=== PATIENT | female | born 1970 | race Caucasian/White ===

== ENCOUNTER 2017-01-14 16:18 | Emergency (ER) | payer SELFPAY ==
[2017-01-14] MEDS ORDERED: NS 0.9% 1000 ML* 1,000 ML IV ONE (16:44)
[2017-01-14] MEDS ORDERED: Ondansetron INJ* 2 MG/ML VIAL IV ONE (16:44)
[2017-01-14 17:16] VITALS: BP 118/65
[2017-01-14 17:31] LABS: Hematocrit 46 % (35-47); Hemoglobin 15.8 g/dl (12.0-16.0); Mean Corpuscular HGB Conc 34 g/dl (31-36); Mean Corpuscular Hemoglobin 29 pg (27-31); Mean Corpuscular Volume 86 fL (80-97); Mean Platelet Volume 9 um3 (7.4-10.4); Red Blood Count 5.38 10^6/ul (4.0-5.4); Red Cell Distribution Width 13 % (10.5-15); White Blood Count 9.3 10^3/ul (3.5-10.8)
[2017-01-14 17:34] LABS: Urine Bilirubin Negative (Negative); Urine Glucose Negative (Negative); Urine Nitrite Negative (Negative)
[2017-01-14 17:48] LABS: Albumin 4.6 g/dL (3.2-5.2); C Reactive Protein 1.75 mg/L (< 5.00); Calcium 9.6 mg/dL (8.6-10.3); EGFR African American 110.4 (>60); EGFR Non-African American 85.8 (>60); Globulin 2.9 g/dL (2-4); Magnesium 1.9 mg/dL (1.9-2.7); Total Bilirubin 0.3 mg/dL (0.2-1.0); Total Protein 7.5 g/dL (6.4-8.9)
[2017-01-14] MEDS ORDERED: Iohexol 300* (CONTRAST) 10 ML SDV IV ONE (18:59)
--- NOTE | 2017-01-14 19:37 | RAD ---
INDICATION: Abdominal pain COMPARISON: None TECHNIQUE: Axial source images were obtained from the hemidiaphragms to the symphysis pubis following administration of oral and intravenous contrast. 97 mL Omnipaque 300 was utilized. Coronal and sagittal reconstructed images were acquired. Lung bases: The lung bases are clear. Liver: The liver is normal in size. There are no masses. There is no ductal dilatation. Gallbladder: There are no calcified gallstones. There is no evidence of wall thickening or pericholecystic fluid. Spleen: The spleen is normal in size. There are no masses. Pancreas: There is no focal pancreatic mass or ductal dilatation. Adrenal glands: There is no evidence of adrenal mass. Kidneys: The kidneys are normal in size and position. There are prompt nephrograms and there is prompt excretion bilaterally. There are no renal parenchymal masses. There is no evidence of nephrolithiasis. Adenopathy: There is no evidence of adenopathy by size criteria. Fluid collections: There are no free or localized fluid collections. Vessels:There are no significant atherosclerotic changes involving the aorta. There is no focal aneurysm. The iliac vessels are normal in caliber. The IVC appears normal. GI tract: There are no acute CT bowel findings. There is no obstruction. The stomach and small bowel appear normal. The lower GI tract is normal. The cecum, ileocecal valve, and terminal ileum appear normal. The appendix is visualized and appear normal. Pelvic organs: The uterus and adnexa appear normal Bladder: There are no bladder masses. Abdominal and pelvic soft tissues: The extraperitoneal abdominal and pelvic soft tissues appear normal.. Osseous structures: There are no acute osseous findings. Other: None IMPRESSION: NO ACUTE CT FINDINGS. NO MASS OR INFLAMMATORY CHANGES.
--- NOTE | 2017-01-14 21:10 | ED ---
George Peterson Rebecca, scribed for Edmund Garcia MD on 01/14/17 at 2036 . Progress - Progress Note Progress Note: Pt was signed out by Dr. Bower, pending disposition, awaiting CT Abd/Pel. pt ct ab pel negative, pt feels better, instructed to fu with PMD .agrees to and understands dc instructions . - Results/Orders Results/Orders: CT Abd/Pel, as read by radiologist reveals: NO ACUTE CT FINDINGS. NO MASS OR INFLAMMATORY CHANGES. ED physician reviewed radiology report and agrees. Re-Evaluation - Re-Evaluation First Eval Re-Evaluation Time: 20:36 Change: Improved Comment: Discussed CT results with the pt who is very pleasant and expresses that she would like to go home. Course/Dx - Diagnoses Provider Diagnoses: Abdominal pain, Rectal bleeding, secondary to external hemorrhoids The documentation as recorded by the George gonzales Rebecca accurately reflects the service I personally performed and the decisions made by me, Edmund Garcia MD.
--- NOTE | 2017-01-15 18:37 | ED ---
Farzad Peterson Angela, scribed for Woody Bower MD on 01/14/17 at 1646 . GI/ HPI - HPI Summary HPI Summary: This pt is a 46 y/o female BIBA presenting to [facility] c/o bright red blood with diarrhea today. Pt reports she was feeling "funny" yesterday with decreased PO intake and "didn't feel like doing anything." Pt states that today she had 2 episodes of diarrhea with bright red blood. She notes that every time she wiped , she states "it was like I was on my period." Pt has a history of external hemorrhoids and reports she has been straining more with bowel movements. Pt additionally c/o upset abd with decreased appetite, cold feet, SOB, and palpitations. She describes her palpitations as fast. She denies cough, fever, nausea, vomiting. Pt had a bowl of oatmeal today. She is not on any anticoagulants. - History of Current Complaint Chief Complaint: [facility] Time Seen by Provider: 01/14/17 16:36 Stated Complaint: GENERAL ILLNESS Hx Obtained From: Patient Onset/Duration: Started Hours Ago Timing: Lasting Hours Vaginal Bleeding Description: Bright Red Pain Intensity: 0 Location of Pain: Diffuse Pain Characteristics: Unable to describe - abd upset Associated Signs and Symptoms: Positive: External Hemorrhoids, Other: - SOB, palpitations, decreased appetite. Negative: Nausea, Vomiting, Fever, Cough Aggravating Factor(s): Straining Alleviating Factor(s): Nothing - Allergy/Home Medications Allergies/Adverse Reactions: Allergies Allergy/AdvReac Type Severity Reaction Status Date / Time pill after to help Allergy Anxiety Uncoded 04/12/14 10:49 contract u Home Medications: Home Medications NK [No Home Medications Reported] 01/14/17 [History Confirmed 01/14/17] PMH/Surg Hx/FS Hx/Imm Hx Endocrine/Hematology History: Denies: Hx Diabetes, Hx Thyroid Disease Cardiovascular History: Denies: Hx Hypertension Respiratory History: Denies: Hx Asthma, Hx Chronic Obstructive Pulmonary Disease (COPD) GI History: Denies: Hx Ulcer History: Reports: Hx Kidney Infection - 1992 Psychiatric History: Denies: Hx Eating Disorder, Hx of Violent Episodes Against Others - Surgical History Surgery Procedure, Year, and Place: wrist fx repair. 1997 & 1999 Infectious Disease History: No Infectious Disease History: Reports: History Other Infectious Disease - scabies 04/2014 Denies: Hx Clostridium Difficile, Hx Hepatitis, Hx Human Immunodeficiency Virus (HIV), Hx of Known/Suspected MRSA, Hx Shingles, Hx Tuberculosis, Hx Known/ Suspected VRE, Traveled Outside the [place] in Last 30 Days - Family History Known Family History: Positive: Cardiac Disease - Father of [place] - Social History Alcohol Use: None Substance Use Type: Reports: Marijuana Smoking Status (MU): Heavy Every Day Tobacco Smoker Type: Cigarettes Amount Used/How Often: 1/2 plus Review of Systems Positive: Other - decreased appetite, cold feet. Negative: Fever, Chills Positive: Palpitations Positive: Shortness Of Breath. Negative: Cough Positive: Diarrhea - with red bright blood. Negative: Vomiting, Nausea Negative: Headache, Weakness, Numbness All Other Systems Reviewed And Are Negative: Yes Physical Exam - Summary Physical Exam Summary: VITAL SIGNS: Reviewed. GENERAL: Patient is a well-developed and nourished female who is lying comfortable in the stretcher. Patient is not in any acute respiratory distress. HEAD AND FACE: No signs of trauma. No ecchymosis, hematomas or skull depressions. No sinus tenderness. EYES: PERRLA, EOMI x 2, No injected conjunctiva, no nystagmus. EARS: Hearing grossly intact. Ear canals and tympanic membranes are within normal limits. MOUTH: Oropharynx within normal limits. NECK: Supple, trachea is midline, no adenopathy, no JVD, no carotid bruit, no c- spine tenderness, neck with full ROM. CHEST: Symmetric, no tenderness at palpation LUNGS: Clear to auscultation bilaterally. No wheezing or crackles. CVS: Pt sounds tachycardic. S1 and S2 present, no murmurs or gallops appreciated. ABDOMEN: Soft, non-tender. No signs of distention. No rebound no guarding, and no masses palpated. There are hyperactive bowel sounds. Rectal exam: female driver engineer present. There are external hemorrhoids and it seems like they are bleeding. EXTREMITIES: FROM in all major joints, no edema, no cyanosis or clubbing. NEURO: Alert and oriented x 3. No acute neurological deficits. Speech is normal and follows commands. SKIN: Dry and warm Triage Information Reviewed: Yes Vital Signs On Initial Exam: Initial Vitals Temp Pulse Resp BP Pulse Ox 99.1 F 96 16 135/90 99 01/14/17 16:27 01/14/17 16:27 01/14/17 16:27 01/14/17 16:27 01/14/17 16:27 Vital Signs Reviewed: Yes Diagnostics - Vital Signs Vital Signs Temp Pulse Resp BP Pulse Ox 01/14/17 16:27 99.1 F 96 16 135/90 99 - Laboratory Lab Results: Lab Results 01/14/17 01/14/17 01/14/17 Range/Units 17:20 17:20 17:20 WBC 9.3 (3.5-10.8) 10^3/ul RBC 5.38 (4.0-5.4) 10^6/ul Hgb 15.8 (12.0-16.0) g/dl Hct 46 (35-47) % MCV 86 (80-97) fL MCH 29 (27-31) pg MCHC 34 (31-36) g/dl RDW 13 (10.5-15) % Plt Count 192 (150-450) 10^3/ul MPV 9 (7.4-10.4) um3 Neut % (Auto) 72.6 (38-83) % Lymph % (Auto) 21.4 L (25-47) % Kerr % (Auto) 4.7 (1-9) % Eos % (Auto) 0.5 (0-6) % Baso % (Auto) 0.8 (0-2) % Absolute Neuts (auto) 6.7 (1.5-7.7) 10^3/ul Absolute Lymphs (auto) 2.0 (1.0-4.8) 10^3/ul Absolute Monos (auto) 0.4 (0-0.8) 10^3/ul Absolute Eos (auto) 0 (0-0.6) 10^3/ul Absolute Basos (auto) 0.1 (0-0.2) 10^3/ul Absolute Nucleated RBC 0 10^3/ul Nucleated RBC % 0 Sodium 136 (133-145) mmol/L Potassium 4.0 (3.5-5.0) mmol/L Chloride 105 (101-111) mmol/L Carbon Dioxide 26 (22-32) mmol/L Anion Gap 5 (2-11) mmol/L BUN 8 (6-24) mg/dL Creatinine 0.73 (0.51-0.95) mg/dL Est GFR ( Amer) 110.4 (>60) Est GFR (Non-Af Amer) 85.8 (>60) BUN/Creatinine Ratio 11.0 (8-20) Glucose 101 H (70-100) mg/dL Calcium 9.6 (8.6-10.3) mg/dL Magnesium 1.9 (1.9-2.7) mg/dL Total Bilirubin 0.30 (0.2-1.0) mg/dL AST 18 (13-39) U/L ALT 13 (7-52) U/L Alkaline Phosphatase 73 (34-104) U/L C-Reactive Protein 1.75 (< 5.00) mg/L Total Protein 7.5 (6.4-8.9) g/dL Albumin 4.6 (3.2-5.2) g/dL Globulin 2.9 (2-4) g/dL Albumin/Globulin Ratio 1.6 (1-3) Amylase 38 (29-103) U/L Lipase 24 (11.0-82.0) U/L Urine Color Straw Urine Appearance Clear Urine pH 6.0 (5-9) Ur Specific Sherrill 1.003 L (1.010-1.030) Urine Protein Negative (Negative) Urine Ketones Negative (Negative) Urine Blood Negative (Negative) Urine Nitrate Negative (Negative) Urine Bilirubin Negative (Negative) Urine Urobilinogen Negative (Negative) Ur Leukocyte Esterase Negative (Negative) Urine Glucose Negative (Negative) Blood Type Antibody Screen 01/14/17 Range/Units 17:20 WBC (3.5-10.8) 10^3/ul RBC (4.0-5.4) 10^6/ul Hgb (12.0-16.0) g/dl Hct (35-47) % MCV (80-97) fL MCH (27-31) pg MCHC (31-36) g/dl RDW (10.5-15) % Plt Count (150-450) 10^3/ul MPV (7.4-10.4) um3 Neut % (Auto) (38-83) % Lymph % (Auto) (25-47) % Kerr % (Auto) (1-9) % Eos % (Auto) (0-6) % Baso % (Auto) (0-2) % Absolute Neuts (auto) (1.5-7.7) 10^3/ul Absolute Lymphs (auto) (1.0-4.8) 10^3/ul Absolute Monos (auto) (0-0.8) 10^3/ul Absolute Eos (auto) (0-0.6) 10^3/ul Absolute Basos (auto) (0-0.2) 10^3/ul Absolute Nucleated RBC 10^3/ul Nucleated RBC % Sodium (133-145) mmol/L Potassium (3.5-5.0) mmol/L Chloride (101-111) mmol/L Carbon Dioxide (22-32) mmol/L Anion Gap (2-11) mmol/L BUN (6-24) mg/dL Creatinine (0.51-0.95) mg/dL Est GFR ( Amer) (>60) Est GFR (Non-Af Amer) (>60) BUN/Creatinine Ratio (8-20) Glucose (70-100) mg/dL Calcium (8.6-10.3) mg/dL Magnesium (1.9-2.7) mg/dL Total Bilirubin (0.2-1.0) mg/dL AST (13-39) U/L ALT (7-52) U/L Alkaline Phosphatase (34-104) U/L C-Reactive Protein (< 5.00) mg/L Total Protein (6.4-8.9) g/dL Albumin (3.2-5.2) g/dL Globulin (2-4) g/dL Albumin/Globulin Ratio (1-3) Amylase (29-103) U/L Lipase (11.0-82.0) U/L Urine Color Urine Appearance Urine pH (5-9) Ur Specific Sherrill (1.010-1.030) Urine Protein (Negative) Urine Ketones (Negative) Urine Blood (Negative) Urine Nitrate (Negative) Urine Bilirubin (Negative) Urine Urobilinogen (Negative) Ur Leukocyte Esterase (Negative) Urine Glucose (Negative) Blood Type A Positive Antibody Screen Negative Result Diagrams: 01/14/17 17:20 01/14/17 17:20 Lab Statement: Any lab studies that have been ordered have been reviewed, and results considered in the medical decision making process. - EKG 1723 Cardiac Rate: NL - 84 bpm EKG Rhythm: Sinus Rhythm EKG Interpretation: No ST elevation GIGU Course/Dx - Course Assessment/Plan: This pt is a 46 y/o female BIBA presenting to [facility] c/o bright red blood with diarrhea today. Pt reports she was feeling "funny" yesterday with decreased PO intake and "didn't feel like doing anything." Pt states that today she had 2 episodes of diarrhea with bright red blood. She notes that every time she wiped, she states "it was like I was on my period." Pt has a history of external hemorrhoids and reports she has been straining more with bowel movements. Pt additionally c/o upset abd with decreased appetite, cold feet, SOB, and palpitations. She describes her palpitations as fast. She denies cough, fever, nausea, vomiting. Pt had a bowl of oatmeal today. She is not on any anticoagulants. Test results without any significant abnormalities, h and h is normal. Stool occult is positive for blood. The pt is hemodynamically stable, not actively bleeding. I believe the rectal bleeding is secondary to hemorrhoids. She reports slight RLQ pain therefore I decided to do a CT. Pt is drinking contrast and is waiting for the test. The pt will be signed out to Dr. Garcia to follow up on imaging. If negative the pt can be discharged home with follow up from his PCP. - Diagnoses Provider Diagnoses: Abdominal pain, Rectal bleeding, secondary to external hemorrhoids Discharge - Discharge Plan Condition: Stable Disposition: OTHER Discharge Disposition Comment: signed out to Dr. Garcia, pending dispo, awaiting CT abd/pel Patient Education Materials: Rectal Bleeding (ED) Referrals: Galo Snow MD [Primary Care Provider] - Additional Instructions: PLEASE MAKE AN APPOINTMENT FIRST THING IN THE MORNING TO BE SEEN BY YOUR PRIMARY CARE PHYSICIAN WITHIN 1 WEEK PLEASE RETURN TO THE EMERGENCY ROOM IF YOU HAVE ANY WORSENING OR CONCERNING SYMPTOMS The documentation as recorded by the Farzad gonzales Angela accurately reflects the service I personally performed and the decisions made by me, Woody Bower MD.
== END 2017-01-14 21:45 ==
LOC: ED 16:18
DX: R10.84 Generalized abdominal pain (principal); K62.5 Hemorrhage of anus and rectum; K64.4 Residual hemorrhoidal skin tags
CPT/HCPCS: 36415; 74177; 80053; 81003; 82150; 82272; 83690; 83735; 85025; 86140; 86850; 86900; 86901; 93005; 96361; 96374; 99283; J2405; Q9967

== ENCOUNTER 2018-10-25 12:53 | Emergency (ER) | payer SELFPAY ==
--- NOTE | 2018-10-25 13:16 | ED ---
Complex/Multi-Sys Presentation - HPI Summary HPI Summary: The patient is a 48 y/o F arriving by ambulance to [facility] accompanied by friend with a chief complaint of sudden onset fatigue and body tremors this afternoon. She reports that she had taken her friends Keflex for a tooth infection that started 4-5 days ago. The pain went from the tooth and into the jaw. She has taken three doses of Keflex, and she states she has taken it before. Then today she took 800mg Ibuprofen after a dose of the abx, and an hour later she started feeling dizzy, weak, and fatigued with elevated HR, and she states she is cold with body tremors but denies fever or chills. EMS also reports hyperventilation and elevated HR. She denies any erythema of eyes, sore throat, CP, SOB, cough, abdominal pain, N/V, dysuria, hematuria, myalgia, edema, or rash. PMHx: kidney infection. FHx: cardiac disease. Heavy every day cigarette smoker, no EtOH, marijuana use. - History Of Current Complaint Chief Complaint: EDGeneral Time Seen by Provider: 10/25/18 12:55 Hx Obtained From: Patient, EMS Onset/Duration: Sudden Onset, Lasting Hours, Still Present Timing: Constant Severity Currently: Moderate Severity Initially: Moderate Aggravating Factor(s): taking Ibuprofen Alleviating Factor(s): nothing Associated Signs And Symptoms: Positive: Dizziness, Weakness, Other - POSITIVE: left-sided dental pain, fatigue, elevated HR, body tremors, hyperventilation; NEGATIVE: chills, erythema of eyes, sore throat, hematuria, myalgia, edema, rash. Negative: SOB, Cough, Chest Pain, Edema, Nausea, Vomiting, Abdominal Pain , Dysuria, Fever - Allergies/Home Medications Allergies/Adverse Reactions: Allergies Allergy/AdvReac Type Severity Reaction Status Date / Time No Known Allergies Allergy Verified 10/25/18 13:07 PMH/Surg Hx/FS Hx/Imm Hx Endocrine/Hematology History: Denies: Hx Diabetes, Hx Thyroid Disease Cardiovascular History: Denies: Hx Hypertension Respiratory History: Denies: Hx Asthma, Hx Chronic Obstructive Pulmonary Disease (COPD) GI History: Denies: Hx Ulcer History: Reports: Hx Kidney Infection - 1992 Denies: Hx Renal Disease Psychiatric History: Denies: Hx Eating Disorder, Hx of Violent Episodes Against Others - Surgical History Surgical History: Yes Surgery Procedure, Year, and Place: wrist fx repair. 1997 & 1999 Infectious Disease History: No Infectious Disease History: Reports: History Other Infectious Disease - scabies 04/2014 Denies: Hx Clostridium Difficile, Hx Hepatitis, Hx Human Immunodeficiency Virus (HIV), Hx of Known/Suspected MRSA, Hx Shingles, Hx Tuberculosis, Hx Known/ Suspected VRE, Traveled Outside the [place] in Last 30 Days - Family History Known Family History: Positive: Cardiac Disease - Father of [place] - Social History Alcohol Use: None Substance Use Type: Reports: Marijuana Hx Tobacco Use: Yes Smoking Status (MU): Heavy Every Day Tobacco Smoker Type: Cigarettes Amount Used/How Often: 1/2 plus Review of Systems Positive: Fatigue, Other - body tremors. Negative: Fever, Chills Negative: Erythema Positive: Dental Pain - left side of mouth. Negative: Sore Throat Positive: Other - rapid HR. Negative: Chest Pain Positive: Other - hyperventilation. Negative: Shortness Of Breath, Cough Negative: Abdominal Pain, Vomiting, Nausea Negative: dysuria, hematuria Negative: Myalgia, Edema Negative: Rash Neurological: Other - dizziness Positive: Weakness All Other Systems Reviewed And Are Negative: Yes Physical Exam - Summary Physical Exam Summary: Constitutional: Well-developed, Well-nourished, Alert. (-) Distressed Skin: Warm, Dry HENT: No trismus, No sublingual erythema, Numerous teeth decayed down to gum line, No drainable dental abscess. Normocephalic; Atraumatic Eyes: Conjunctiva normal Neck: Musculoskeletal ROM normal neck. (-) JVD, (-) Stridor, (-) Tracheal deviation Cardio: Rhythm regular, rate normal, Heart sounds normal; Intact distal pulses; The pedal pulses are 2+ and symmetric. Radial pulses are 2+ and symmetric. (-) Murmur Pulmonary/Chest wall: Effort normal. (-) Respiratory distress, (-) Wheezes, (-) Rales Abd: Soft, (-) tenderness, (-) Distension, (-) Guarding, (-) Rebound Musculoskeletal: (-) Edema Lymph: (-) Cervical adenopathy Neuro: Alert, Oriented x3 Psych: Mood and affect Normal Triage Information Reviewed: Yes Vital Signs On Initial Exam: Initial Vitals Temp Pulse Resp BP Pulse Ox 98.1 F 98 16 148/81 99 10/25/18 13:01 10/25/18 13:01 10/25/18 13:01 10/25/18 13:01 10/25/18 13:01 Vital Signs Reviewed: Yes Diagnostics - Vital Signs Vital Signs Temp Pulse Resp BP Pulse Ox 10/25/18 13:01 98.1 F 98 16 148/81 99 - Laboratory Result Diagrams: 10/25/18 13:06 10/25/18 13:06 Lab Statement: Any lab studies that have been ordered have been reviewed, and results considered in the medical decision making process. - EKG 1312 Cardiac Rate: NL - 77 bpm EKG Rhythm: Sinus Rhythm Summary of EKG Findings: NSR at 77 bpm. No STEMI. Complex Multi-Symp Course/Dx Course Of Treatment: Patient is a 48 y/o arriving by ambulance with cc of sudden onset fatigue, weakness, dizziness, body tremors, rapid HR, and hyperventilation today after taking 800mg Ibuprofen following taking three doses of a friends Keflex for a toothache that was 4-5 days ago. Denies fevers , chills, CP, SOB, cough. No trismus, No sublingual erythema, Numerous teeth decayed down to gum line, No drainable dental abscess. Blood work without significant abnormality but reveals RBCs of 4.93, glucose of 116, and magnesium of 1.8. EKG at 1312 reveals NSR at 77 bpm without any ischemic changes. She is diagnosed with dental carries and hyperventilation syndrome. She is discharged home with rx for Naproxen and Penicillin and is advised to follow up with [facility] and oral surgery referral for dental work in 2-3 days. She agrees with discharge plan. - Diagnoses Provider Diagnoses: Infected dental carries, Hyperventilation syndrome Discharge ED - Sign-Out/Discharge Documenting (check all that apply): Patient Departure - Patient will be discharged home. Patient Received Moderate/Deep Sedation with Procedure: No - Discharge Plan Condition: Fair Disposition: HOME Prescriptions: Naproxen TAB* [Naprosyn 250 mg TAB*] 500 mg PO Q8H PRN #30 tab PRN Reason: Pain - Moderate Penicillin VK TAB* [Penicillin VK 250 mg Tab*] 500 mg PO QID #40 tab Patient Education Materials: Cavity Preventive (For the teeth or gums), Hyperventilation (ED) Referrals: [facility] [Outside] Additional Instructions: Please take medications as prescribed. Follow up with [facility] in 2-3 days as well as the dental referral we provided for you. RETURN TO THE EMERGENCY DEPARTMENT FOR ANY NEW OR WORSEN SYTMPOMS. - Billing Disposition and Condition Condition: FAIR Disposition: Home - Attestation Statements Document Initiated by Blakeibe: Yes Documenting Scribe: Andressa Saez Provider For Whom Blakeibe is Documenting (Include Credential): Dr. José Antonio Hauser MD Scribe Attestation: Andressa Peterson scrgeed for Dr. José Antonio Hauser MD on 11/09/18 at 1420. Scribe Documentation Reviewed: Yes Provider Attestation: The documentation as recorded by the Andressa gonzales accurately reflects the service I personally performed and the decisions made by me, Dr. José Antonio Hauser MD Status of Scribe Document: Viewed
[2018-10-25 13:18] LABS: ABS Basophils 0.1 10^3/ul (0-0.2); ABS Eosinophils 0.1 10^3/ul (0-0.6); ABS Lymphocytes 2.5 10^3/ul (1.0-4.8); ABS Monocytes 0.3 10^3/ul (0-0.8); ABS Neutrophils 4.4 10^3/ul (1.5-7.7); Eosinophil % 1.1 %; Hematocrit 43 % (35-47); Hemoglobin 14.5 g/dL (12.0-16.0); Lymphocyte % 33.5 %; Mean Corpuscular HGB Conc 34 g/dL (31-36); Mean Corpuscular Hemoglobin 29 pg (27-31); Mean Corpuscular Volume 87 fL (80-97); Mean Platelet Volume 8.3 fL (7.4-10.4); Platelet Count 203 10^3/uL (150-450); Red Blood Count 4.93 10^6 /uL (3.70-4.87); Red Cell Distribution Width 13 % (10-15); White Blood Count 7.4 10^3/uL (3.5-10.8)
[2018-10-25 13:40] LABS: Albumin 4.2 g/dL (3.2-5.2); Albumin/Globulin Ratio 1.7 (1-3); BUN/Creatinine Ratio 10.3 (8-20); Calcium 8.9 mg/dL (8.6-10.3); EGFR African American 95.4 (>60); EGFR Non-African American 78.8 (>60); Globulin 2.5 g/dL (2-4); Magnesium 1.8 mg/dL (1.9-2.7); Potassium 3.5 mmol/L (3.5-5.0); Total Bilirubin 0.2 mg/dL (0.2-1.0); Total Protein 6.7 g/dL (6.4-8.9)
[2018-10-25 14:12] LABS: TSH (Thyroid Stimulating Horm) 1.48 mcIU/mL (0.34-5.60)
[2018-10-25 15:01] VITALS: BP 122/65
== END 2018-10-25 14:58 | disposition home or self-care (01) ==
LOC: ED 12:53
DX: K02.9 Dental caries, unspecified (principal); F45.8 Other somatoform disorders; F17.210 Nicotine dependence, cigarettes, uncomplicated
CPT/HCPCS: 36415; 80053; 83605; 83735; 84443; 84484; 85025; 93005; 99282